=== PATIENT | male | born 1970 | race Caucasian/White ===

== ENCOUNTER 2020-06-15 21:55 | Inpatient (IN) | payer MEDICAID ==
[~2020-06-15] VITALS: Ht 160 cm; Wt 94.3 kg
[2020-06-15 22:23] VITALS: Ht 160 cm; Wt 94.3 kg
[2020-06-15 23:37] LABS: BASOPHIL % 0.1 % (0.2-1.5); PLATELET COUNT 361 x10^3mcL (152-348); RED CELL DISTRIBUTION WIDTH 13.3 % (12.1-16.2)
[2020-06-15 23:50] LABS: CALCIUM 8.9 mg/dL (8.5-10.1); CARBON DIOXIDE 24.9 mmol/L (21-32); CHLORIDE SERUM 101 mmol/L (98-107); GFR1 > 60 mL/min; GLUCOSE SERUM 140 mg/dL (74-106); POTASSIUM SERUM 4.5 mmol/L (3.5-5.1); SODIUM SERUM 137 mmol/L (136-145)
[2020-06-15 23:54] LABS: ALKALINE PHOSPHATASE 69 U/L (46-116); ALT/SGPT 33 U/L (16-63); AST/SGOT 13 U/L (15-37); BILIRUBIN TOTAL 0.9 mg/dL (0.20-1.00); LIPASE 47 IU/L (73-393); TOTAL PROTEIN, SERUM 7.4 g/dL (6.4-8.2)
[2020-06-15 23:55] LABS: ALBUMIN 2.9 g/dL (3.4-5.0)
[2020-06-16 04:32] LABS: CHOLESTEROL/HDL RATIO 3.8; MAGNESIUM 2.4 mg/dL (1.8-2.4); PHOSPHOROUS 4.5 mg/dL (2.5-4.9)
[2020-06-16 04:59] LABS: microscopic required? NO
[2020-06-16 05:44] LABS: CALCIUM 8.1 mg/dL (8.5-10.1); CARBON DIOXIDE 24.3 mmol/L (21-32); CHLORIDE SERUM 105 mmol/L (98-107); GFR1 > 60 mL/min; GLUCOSE SERUM 117 mg/dL (74-106); POTASSIUM SERUM 4.1 mmol/L (3.5-5.1); SODIUM SERUM 138 mmol/L (136-145)
[2020-06-16 06:38] LABS: AMPHETAMINE QUAL UR NONE DETECTED (See below)
[2020-06-16 06:48] LABS: UA SPECIFIC GRAVITY >=1.030 (1.005-1.035); urine erythrocyte NEGATIVE (NEGATIVE)
[2020-06-16 11:51] LABS: BASOPHIL % 0.3 % (0.2-1.5); PLATELET COUNT 324 x10^3mcL (152-348); RED CELL DISTRIBUTION WIDTH 13.2 % (12.1-16.2)
[2020-06-16 14:18] VITALS: BP 118/69
[2020-06-16 15:41] VITALS: BP 118/69
[2020-06-16 16:48] VITALS: BP 115/67
[2020-06-16 20:46] VITALS: BP 111/65
[2020-06-17 05:17] VITALS: BP 110/70
[2020-06-17 08:25] VITALS: BP 115/64
[2020-06-17 08:43] LABS: BASOPHIL % 0.8 % (0.2-1.5); PLATELET COUNT 305 x10^3mcL (152-348); RED CELL DISTRIBUTION WIDTH 13.3 % (12.1-16.2)
[2020-06-17 09:47] LABS: CALCIUM 8.5 mg/dL (8.5-10.1); CARBON DIOXIDE 24.6 mmol/L (21-32); CHLORIDE SERUM 107 mmol/L (98-107); CREATININE SERUM 1.1 mg/dL (0.7-1.3); GFR1 > 60 mL/min; GLUCOSE SERUM 80 mg/dL (74-106); POTASSIUM SERUM 3.6 mmol/L (3.5-5.1); SODIUM SERUM 143 mmol/L (136-145)
[2020-06-17] MEDS ORDERED: APAP/HYDROCODON1 T13 PO (13:01)
[2020-06-17] MEDS ORDERED: HYDROCODONE BIT1 T51 PO (13:09)
[2020-06-17 13:18] VITALS: BP 113/70
[2020-06-17] MEDS ORDERED: AUGMENTIN 875-1 EACH PO ×2 (14:59→15:12)
[2020-06-17 15:19] VITALS: BP 113/70
== END 2020-06-17 16:40 | disposition home or self-care (01) | DRG 244 ==
LOC: ED 21:55 → DU 06-16 00:56 → MU 06-16 00:56 → DU 06-16 12:56 → MU 06-16 23:56
PROVIDERS: Emergency Medicine; Surgery; ADMIT Family Medicine; ATTEND Family Medicine
DX: K57.92 Diverticulitis of intestine, part unspecified, without perforation or abscess without bleeding (principal); E44.0 Moderate protein-calorie malnutrition; Z20.828 Contact with and (suspected) exposure to other viral communicable diseases; D72.829 Elevated white blood cell count, unspecified; Z68.33 Body mass index [BMI] 33.0-33.9, adult
CPT/HCPCS: G0378; J1885; J1956; J2543; J3370; J7030; J7042; U0003